=== PATIENT | female | born 1985 | race Caucasian/White ===

== ENCOUNTER 2024-02-01 15:16 | Emergency (ER) | payer BC ==
[2024-02-01 15:21] VITALS: RESP 16; TEMP 97.3; BMI 33.8
[2024-02-01] MEDS ORDERED: ACETAMINOPHEN 325 MG TABLET (FP) ONE (16:06)
[2024-02-01] MEDS: ACETAMINOPHEN 325 MG TABLET (FP) PO ONE (16:08)
[2024-02-01 16:31] LABS: HEMATOCRIT 45.7 % (32.4-45.2); HEMOGLOBIN 14.9 G/dL (10.7-15.3); MCH 29.8 pg (25.7-33.7); MCHC 32.6 g/dl (32.0-36.0); MEAN CELL VOLUME 91.3 fl (80-96); MEAN PLT VOLUME 6.7 fl (7.5-11.1); PLATELET COUNT 381.1 10^3/uL (134-434); RBC 5.01 10^6/uL (3.60-5.2); RDW 13.2 % (11.6-15.6)
[2024-02-01 16:47] LABS: PROTHROMBIN TIME (PATIENT) 11.4 SEC (9.7-13.0)
[2024-02-01 16:49] LABS: ACTIVATED PTT 32.9 SECONDS (25.2-36.5)
[2024-02-01 16:58] LABS: ALBUMIN 4.4 g/dl (3.4-5.0); BILIRUBIN,TOTAL 0.6 mg/dl (0.2-1); CALCIUM 9.4 mg/dl (8.5-10.1)
[2024-02-01 17:17] LABS: PLATELET ESTIMATE ADEQUATE
[2024-02-01] MEDS ORDERED: cefTRIAXone SODIUM 1 GM VIAL ONE (17:18)
[2024-02-01] MEDS: CEFTRIAXONE 1,000 MG in DEXTROSE 5%-WATER - 50 ML IVPB ONE (17:25)
[2024-02-01 18:36] VITALS: BP 143/89; PULSE 75
[2024-02-01] MEDS ORDERED: IBUPROFEN 400 MG TABLET (FP) PO ONE (18:36)
[2024-02-01] MEDS: IBUPROFEN 400 MG TABLET (FP) PO ONE (18:39)
== END 2024-02-01 19:54 | disposition home or self-care (01) ==
LOC: FER 15:16
DX: N39.0 Urinary tract infection, site not specified (principal); N20.0 Calculus of kidney; R10.11 Right upper quadrant pain
CPT/HCPCS: 36415; 74176-TC; 76705-TC; 80053; 81003; 81015; 81025; 85025; 85610; 85730; 86850; 86900; 86901; 87086; 99285-25